=== PATIENT | male | born 1955 | race Caucasian/White ===

== ENCOUNTER 2019-05-14 19:04 | Emergency (ER) | payer MEDICARE, BC ==
[2019-05-14] MEDS ORDERED: Sodium Chloride 0.9% 1000 ML 1,000 ML ONE (19:39)
[2019-05-14 19:45] LABS: BASOPHIL % 1.2 % (0.0-0.4); Basophil (Absolute #) 0.05 (0-0.4); Eosinophil % 9.9 % (0.00-5.0); Eosinophil (Absolute #) 0.42 (0-0.5); Granulocyte Absolute (ANC) 2.24 (1.4-6.9); Granulocytes % 52.5 % (36.0-66.0); Hematocrit 39.4 % (42-50); Lymphocyte (Absolute #) 1.12 (1.0-4.6); Lymphocytes % 26.3 % (24.0-44.0); Mean Cell Volume 95.4 fl (78-100); Mean Corpuscular Hemoglobin 31.5 pg (26-32); Mean Platelet Volume 9.4 fl (6-9.5); Monocyte (Absolute #) 0.43 (0.0-1.3); Monocytes % 10.1 % (0.0-12.0); Platelet Count 218 K/mm3 (150-450); Red Blood Count 4.13 M/mm3 (4.1-5.6); Red Cell Distribution Width 14.9 % (11.5-14.0); White Blood Count 4.3 K/mm3 (4.0-10.5)
[2019-05-14] MEDS ORDERED: Sodium Chloride 0.9% 1000 ML 1,000 ML IV SCH (19:45)
--- NOTE | 2019-05-14 20:08 | ERPHSYRPT ---
- History of Present Illness Time Seen by Provider: 05/14/19 20:05 Source: patient Exam Limitations: no limitations Patient Subjective Stated Complaint: pt is alert and oriented. pt is ambulatory with a steady gait. pt comes in with c/o dizziness, lightheadedness, and low blood pressure. pt states he just feels like he could pass out. pt bp is 97/63. pt skin pale, warm, and clammy. pt cheeks are flushed. pt denies chest pain, sob , nausea, vomiting, diarrhea. pt states that he has been coughing alot. pt is breathing easily on the bed. pt is afebrile. sinus rhythm on the monitor. Triage Nursing Assessment: see above Physician History: 63-year-old white male with history of dementia, hypothyroidism, asthma, sleep apnea, depression, lung disease Patient brought by his family with complaints that the patient has been complaining of being short of breath with a cough for 2 months his apparently has been dizzy for 3 days he does not have any chest pain he has no nausea no vomiting no fevers Patient's thought patient's blood pressure was low at about 99 systolic prior to arrival patient does not have a history of hypertension. Past medical history includes dementia, hypothyroidism, asthma, sleep apnea, depression, lung disease past surgical history includes tonsils, hernia repair, right knee surgery, Timing/Duration: other (short of breath 2 months,, dizzy weak 3 days) Modifying Factors: Improves With: nothing Associated Symptoms: shortness of breath, weakness, other (dizzy), No nausea, No vomiting, No abdominal pain, No heartburn, No diaphoresis, No cough, No chills, No chest pain, No fever, No headaches, No loss of appetite, No malaise, No rash, No syncope, No seizure Allergies/Adverse Reactions: No Known Drug Allergies Allergy (Unverified 05/14/19 19:25) Home Medications: ARIPiprazole [Aripiprazole] 10 mg PO DAILY 05/14/19 [History] Cyanocobalamin (Vitamin B-12) [Vitamin B-12] 1,000 mcg PO DAILY 05/14/19 [ History] Donepezil HCl 10 mg [Aricept 10 MG] 5 mg PO DAILY 05/14/19 [History] Fluoxetine HCl 10 mg [Prozac 10 mg] 10 mg PO DAILY 05/14/19 [History] Levothyroxine Sodium 150 mcg PO DAILY 05/14/19 [History] Multivitamin [Multivitamins] 1 each PO DAILY 05/14/19 [History] Trazodone HCl 100 mg PO DAILY 05/14/19 [History] Hx Influenza Vaccination/Date Given: No Hx Pneumococcal Vaccination/Date Given: No Immunizations Up to Date: Yes - Review of Systems Constitutional: Weakness, No Fever, No Chills Eyes: No Symptoms Ears, Nose, & Throat: No Symptoms Respiratory: Dyspnea, No Cough Cardiac: No Chest Pain, No Edema, No Syncope Abdominal/Gastrointestinal: No Abdominal Pain, No Nausea, No Vomiting, No Diarrhea Genitourinary Symptoms: No Dysuria Musculoskeletal: No Back Pain, No Neck Pain Skin: No Rash Neurological: Dizziness, No Focal Weakness, No Sensory Changes Psychological: No Symptoms Endocrine: No Symptoms All Other Systems: Reviewed and Negative - Past Medical History Pertinent Past Medical History: Yes Neurological History: Dementia ENT History: No Pertinent History Cardiac History: No Pertinent History Respiratory History: Asthma, Sleep Apnea Endocrine Medical History: Hypothyroidism Musculoskeletal History: No Pertinent History GI Medical History: No Pertinent History History: No Pertinent History Psycho-Social History: Depression Male Reproductive Disorders: No Pertinent History Other Medical History: Lyme disease - Past Surgical History Past Surgical History: Yes Neuro Surgical History: No Pertinent History Cardiac: No Pertinent History Respiratory: No Pertinent History Gastrointestinal: Hernia Repair Genitourinary: No Pertinent History Musculoskeletal: Joint Replacement Male Surgical History: No Pertinent History Other Surgical History: right knee replacement, hip. - Social History Smoking Status: Former smoker Drug Use: none - Nursing Vital Signs Nursing Vital Signs: Initial Vital Signs Temperature 97.5 F 05/14/19 19:16 Pulse Rate 53 L 05/14/19 19:16 Respiratory Rate 18 05/14/19 19:16 Blood Pressure 97/63 05/14/19 19:16 O2 Sat by Pulse Oximetry 97 05/14/19 19:16 Pain Scale Pain Intensity 0 - Physical Exam General Appearance: no apparent distress, alert Eye Exam: PERRL/EOMI, eyes nml inspection Ears, Nose, Throat Exam: normal ENT inspection, TMs normal, pharynx normal, moist mucous membranes Neck Exam: normal inspection, non-tender, supple, full range of motion Respiratory Exam: normal breath sounds, lungs clear, No respiratory distress Cardiovascular Exam: regular rate/rhythm, normal heart sounds, normal peripheral pulses, capillary refill <2 sec Gastrointestinal/Abdomen Exam: soft, normal bowel sounds, No tenderness, No mass Back Exam: normal inspection, normal range of motion, No CVA tenderness, No vertebral tenderness Extremity Exam: normal inspection, normal range of motion, pelvis stable Neurologic Exam: alert, oriented x 3, cooperative, 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, normal mood/affect, nml cerebellar function, nml station & gait, sensation nml, No motor deficits Skin Exam: normal color, warm, dry, No rash Lymphatic Exam: No adenopathy SpO2 Interpretation: normal (97%) SpO2: 97 - Course Nursing assessment & vital signs reviewed: Yes EKG Interpreted by Me: RATE (49 bpm), Sinus Eric, NORMAL AXIS, Other (EKG: Sinus bradycardia, 49 beats per minute, normal axis, normal EKG, no acute ST or T wave changes) Ordered Tests: Active Orders 24 hr Category Date Time Status EKG-ER Only STAT Care 05/14/19 19:35 Active IV Insertion STAT Care 05/14/19 19:35 Active CHEST 1 VIEW (PORTABLE) Stat Exams 05/14/19 19:35 Taken AMYLASE Stat Lab 05/14/19 19:30 Completed BLOOD CULTURE Stat Lab 05/14/19 20:00 Received CBC W DIFF Stat Lab 05/14/19 19:30 Completed CMP Stat Lab 05/14/19 19:30 Completed LIPASE Stat Lab 05/14/19 19:30 Completed TROPONIN Q3H Lab 05/14/19 10:35 Completed TROPONIN Q3H Lab 05/14/19 19:30 Completed TROPONIN Q3H Lab 05/15/19 01:45 Ordered TROPONIN Q3H Lab 05/15/19 04:45 Ordered TROPONIN Q3H Lab 05/15/19 07:45 Ordered TSH [TSH, 3RD Generation] Stat Lab 05/14/19 22:30 Completed UA W/RFX UR CULTURE Stat Lab 05/14/19 20:20 Completed Medication Summary Generic Name Dose Route Start Last Admin Trade Name Freq PRN Reason Stop Dose Admin Sodium Chloride 1,000 mls @ 100 mls/hr 05/14/19 19:45 05/14/19 19:42 Sodium Chloride 0.9% 1000 Ml IV 06/13/19 19:44 100 mls/hr .Q10H YOBANY Administration Lab/Rad Data: Laboratory Result Diagrams 05/14/19 19:30 05/14/19 19:30 Laboratory Results 05/14/19 05/14/19 05/14/19 Range/Units 22:30 22:30 20:20 WBC (4.0-10.5) K/mm3 RBC (4.1-5.6) M/mm3 Hgb (12.5-18.0) gm/dl Hct (42-50) % MCV (78-100) fl MCH (26-32) pg MCHC (32-36) g/dl RDW (11.5-14.0) % Plt Count (150-450) K/mm3 MPV (6-9.5) fl Gran % (36.0-66.0) % Eos # (Auto) (0-0.5) Absolute Lymphs (auto) (1.0-4.6) Absolute Monos (auto) (0.0-1.3) Lymphocytes % (24.0-44.0) % Monocytes % (0.0-12.0) % Eosinophils % (0.00-5.0) % Basophils % (0.0-0.4) % Absolute Granulocytes (1.4-6.9) Basophils # (0-0.4) Sodium (137-145) mmol/L Potassium (3.5-5.1) mmol/L Chloride (98-107) mmol/L Carbon Dioxide (22-30) mmol/L Anion Gap (5-15) MEQ/L BUN (9-20) mg/dL Creatinine (0.66-1.25) mg/dL Estimated GFR ML/MIN Glucose (74-106) mg/dL Calcium (8.4-10.2) mg/dL Total Bilirubin (0.2-1.3) mg/dL AST (17-59) U/L ALT (0-50) U/L Alkaline Phosphatase (38-126) U/L Troponin I (0.000-0.034) ng/mL Serum Total Protein (6.3-8.2) g/dL Albumin (3.5-5.0) g/dL Amylase (30-110) U/L Lipase (23-300) U/L Free T4 1.34 (0.76-1.46) ng/dL TSH 3rd Generation 0.356 L (0.47-4.68) mIU/L Urine Color YELLOW (YELLOW) Urine Appearance CLEAR (CLEAR) Urine pH 5.0 (5-6) Ur Specific [place] 1.014 (1.005-1.025) Urine Protein NEGATIVE (Negative) Urine Ketones NEGATIVE (NEGATIVE) Urine Blood NEGATIVE (0-5) Robert/ul Urine Nitrite NEGATIVE (NEGATIVE) Urine Bilirubin NEGATIVE (NEGATIVE) Urine Urobilinogen NEGATIVE (0-1) mg/dL Ur Leukocyte Esterase NEGATIVE (NEGATIVE) Urine WBC (Auto) NONE (0-5) /HPF Urine RBC (Auto) NONE (0-2) /HPF U Epithel Cells (Auto) NONE (FEW) /HPF Urine Bacteria (Auto) NONE (NEGATIVE) /HPF Urine Mucus (Auto) SLIGHT (NEGATIVE) /HPF Urine Culture Reflexed NO (NO) Urine Glucose NEGATIVE (NEGATIVE) mg/dL 05/14/19 05/14/19 05/14/19 Range/Units 19:30 19:30 19:30 WBC 4.3 (4.0-10.5) K/mm3 RBC 4.13 (4.1-5.6) M/mm3 Hgb 13.0 (12.5-18.0) gm/dl Hct 39.4 L (42-50) % MCV 95.4 (78-100) fl MCH 31.5 (26-32) pg MCHC 33.0 (32-36) g/dl RDW 14.9 H (11.5-14.0) % Plt Count 218 (150-450) K/mm3 MPV 9.4 (6-9.5) fl Gran % 52.5 (36.0-66.0) % Eos # (Auto) 0.42 (0-0.5) Absolute Lymphs (auto) 1.12 (1.0-4.6) Absolute Monos (auto) 0.43 (0.0-1.3) Lymphocytes % 26.3 (24.0-44.0) % Monocytes % 10.1 (0.0-12.0) % Eosinophils % 9.9 H (0.00-5.0) % Basophils % 1.2 (0.0-0.4) % Absolute Granulocytes 2.24 (1.4-6.9) Basophils # 0.05 (0-0.4) Sodium 139 (137-145) mmol/L Potassium 4.2 (3.5-5.1) mmol/L Chloride 109 H (98-107) mmol/L Carbon Dioxide 23 (22-30) mmol/L Anion Gap 11.1 (5-15) MEQ/L BUN 18 (9-20) mg/dL Creatinine 1.05 (0.66-1.25) mg/dL Estimated GFR > 60.0 ML/MIN Glucose 101 (74-106) mg/dL Calcium 8.9 (8.4-10.2) mg/dL Total Bilirubin 0.30 (0.2-1.3) mg/dL AST 27 (17-59) U/L ALT 27 (0-50) U/L Alkaline Phosphatase 74 (38-126) U/L Troponin I < 0.012 (0.000-0.034) ng/mL Serum Total Protein 7.2 (6.3-8.2) g/dL Albumin 4.2 (3.5-5.0) g/dL Amylase 127 H (30-110) U/L Lipase 84 (23-300) U/L Free T4 (0.76-1.46) ng/dL TSH 3rd Generation (0.47-4.68) mIU/L Urine Color (YELLOW) Urine Appearance (CLEAR) Urine pH (5-6) Ur Specific [place] (1.005-1.025) Urine Protein (Negative) Urine Ketones (NEGATIVE) Urine Blood (0-5) Robert/ul Urine Nitrite (NEGATIVE) Urine Bilirubin (NEGATIVE) Urine Urobilinogen (0-1) mg/dL Ur Leukocyte Esterase (NEGATIVE) Urine WBC (Auto) (0-5) /HPF Urine RBC (Auto) (0-2) /HPF U Epithel Cells (Auto) (FEW) /HPF Urine Bacteria (Auto) (NEGATIVE) /HPF Urine Mucus (Auto) (NEGATIVE) /HPF Urine Culture Reflexed (NO) Urine Glucose (NEGATIVE) mg/dL 05/14/19 Range/Units 10:35 WBC (4.0-10.5) K/mm3 RBC (4.1-5.6) M/mm3 Hgb (12.5-18.0) gm/dl Hct (42-50) % MCV (78-100) fl MCH (26-32) pg MCHC (32-36) g/dl RDW (11.5-14.0) % Plt Count (150-450) K/mm3 MPV (6-9.5) fl Gran % (36.0-66.0) % Eos # (Auto) (0-0.5) Absolute Lymphs (auto) (1.0-4.6) Absolute Monos (auto) (0.0-1.3) Lymphocytes % (24.0-44.0) % Monocytes % (0.0-12.0) % Eosinophils % (0.00-5.0) % Basophils % (0.0-0.4) % Absolute Granulocytes (1.4-6.9) Basophils # (0-0.4) Sodium (137-145) mmol/L Potassium (3.5-5.1) mmol/L Chloride (98-107) mmol/L Carbon Dioxide (22-30) mmol/L Anion Gap (5-15) MEQ/L BUN (9-20) mg/dL Creatinine (0.66-1.25) mg/dL Estimated GFR ML/MIN Glucose (74-106) mg/dL Calcium (8.4-10.2) mg/dL Total Bilirubin (0.2-1.3) mg/dL AST (17-59) U/L ALT (0-50) U/L Alkaline Phosphatase (38-126) U/L Troponin I < 0.012 (0.000-0.034) ng/mL Serum Total Protein (6.3-8.2) g/dL Albumin (3.5-5.0) g/dL Amylase (30-110) U/L Lipase (23-300) U/L Free T4 (0.76-1.46) ng/dL TSH 3rd Generation (0.47-4.68) mIU/L Urine Color (YELLOW) Urine Appearance (CLEAR) Urine pH (5-6) Ur Specific [place] (1.005-1.025) Urine Protein (Negative) Urine Ketones (NEGATIVE) Urine Blood (0-5) Robert/ul Urine Nitrite (NEGATIVE) Urine Bilirubin (NEGATIVE) Urine Urobilinogen (0-1) mg/dL Ur Leukocyte Esterase (NEGATIVE) Urine WBC (Auto) (0-5) /HPF Urine RBC (Auto) (0-2) /HPF U Epithel Cells (Auto) (FEW) /HPF Urine Bacteria (Auto) (NEGATIVE) /HPF Urine Mucus (Auto) (NEGATIVE) /HPF Urine Culture Reflexed (NO) Urine Glucose (NEGATIVE) mg/dL - Progress Progress: improved Progress Note: 05/15/19 00:32 Patient feeling better after 1 L of normal saline patient has had some bradycardia around 48-50 beats per minute, blood pressures have been stable free T4 is 1.34 chemistry essentially normal, urinalysis is normal troponin normal x2 CBC white blood cell of 4.3 hemoglobin 13.0 hematocrit 39.4 Will plan to discharge patient and have patient followup with Dr. Melton. I have discussed the case briefly with Dr. Melton. - Departure Departure Disposition: Home Clinical Impression: Dizziness Condition: Fair Critical Care Time: No Referrals: ALMAZ GILMAN NP [Primary Care Provider] - Additional Instructions: Return home, rest, plenty of fluids. Continue medications as prescribed by your family . Followup with your family . Return for acute distress or for severe symptoms or for any problems.
[2019-05-14 20:15] LABS: ALBUMIN 4.2 g/dL (3.5-5.0); ALKALINE PHOSPHATASE 74 U/L (38-126); AMYLASE 127 U/L (30-110); ANION GAP 11.1 MEQ/L (5-15); BLOOD UREA NITROGEN 18 mg/dL (9-20); CHLORIDE 109 mmol/L (98-107); Calcium 8.9 mg/dL (8.4-10.2); Carbon Dioxide 23 mmol/L (22-30); Creatinine 1 1.05 mg/dL (0.66-1.25); Glucose 101 mg/dL (74-106); LIPASE 84 U/L (23-300); Potassium 4.2 mmol/L (3.5-5.1); SGOT/AST 27 U/L (17-59); SGPT/ALT 27 U/L (0-50); SODIUM 139 mmol/L (137-145); Total Protein 7.2 g/dL (6.3-8.2)
[2019-05-14 20:34] LABS: Appearance CLEAR (CLEAR); Bilirubin NEGATIVE (NEGATIVE); Blood NEGATIVE Ery/ul (0-5); Glucose NEGATIVE (NEGATIVE); Ketones NEGATIVE (NEGATIVE); Leukocyte Esterase NEGATIVE (NEGATIVE); Mucus SLIGHT /HPF (NEGATIVE); Nitrite NEGATIVE (NEGATIVE); Protein,Urine Dip NEGATIVE (Negative); Specific Gravity 1.014 (1.005-1.025); Urobilinogen NEGATIVE mg/dL (0-1)
[2019-05-15 01:18] VITALS: BP 94/75; PULSE 45; O2SAT 99
--- NOTE | 2019-05-15 09:11 | XRAY ---
Indication: Short of breath. Dizziness. Comparison: June 05, 2007. Portable chest again demonstrates normal heart and lungs. Bony thorax intact with mild degenerative changes and interval distal right clavicle resection. Impression: Nonacute chest with chronic features.
== END 2019-05-15 01:27 | disposition home or self-care (01) ==
LOC: ED 19:04
DX: R42 Dizziness and giddiness (principal); E03.9 Hypothyroidism, unspecified; Z79.899 Other long term (current) drug therapy
CPT/HCPCS: 36000; 36415; 71045; 80053; 81001; 82150; 83690; 84439; 84443; 84484; 85025; 87040; 93005; 96360; 96361; 99284

== ENCOUNTER 2024-08-30 15:13 | Emergency (ER) | payer MEDICARE, OTHER ==
[2024-08-30 15:36] VITALS: TEMP 98.4
--- NOTE | 2024-08-30 15:43 | ERPHSYRPT ---
- History of Present Illness Time Seen by Provider: 08/30/24 15:38 Source: patient, family Exam Limitations: no limitations Patient Subjective Stated Complaint: C/O back pain (right mid to upper back). Denies falls or injury. Indicates pain started about 3 weeks ago and is increasing in severity. No hurts to cough or deep breath. Triage Nursing Assessment: Patient ambulated back to ER. He is alert and oriented; hard of hearing. Labored breathing noted with exertion. Crackles noted to right lower lobe. No skin alterations noted to area of pain. Physician History: 69-year-old male came to the emergency room with right lower chest wall pain on the posterior side associated with worsening shortness of breath. 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 Patient denies any blood in the sputum fever chills nausea or vomiting blood in the urine or stool. Patient has a history of smoking but quit around 1015 years ago. 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 Patient denies any heavy pressure type of chest pain nausea or vomiting or abdom inal pain headache or dizziness. Timing/Duration: week(s) (Three weeks), gradual onset Possible Cause: occasional episodes Modifying Factors: Improves With: activity Associated Symptoms: wheezing, painful breathing, No productive cough Allergies/Adverse Reactions: Influenza Virus Vaccines Allergy (Verified 08/30/24 15:27) Home Medications: Aspirin 81 mg PO DAILY 02/14/23 [History] Cyanocobalamin (Vitamin B-12) [B-12] 1,000 mcg PO DAILY 02/14/23 [History] Donepezil HCl [Aricept] 5 mg PO HS 02/14/23 [History] Fluoxetine HCl 10 mg [Prozac 10 mg] 10 mg PO DAILY 02/14/23 [History] Folic Acid 1 mg [Folate 1 mg] 1 mg PO DAILY 02/14/23 [History] Levothyroxine Sodium 112 Mcg [Synthroid 112 Mcg] 112 mcg PO DAILY 02/14/23 [History] Memantine HCl 10 mg PO BID 02/14/23 [History] Pravastatin Sodium 20 mg PO HS 02/14/23 [History] Hx Tetanus, Diphtheria Vaccination/Date Given: Yes Hx Influenza Vaccination/Date Given: No (allergy) Hx Pneumococcal Vaccination/Date Given: No Immunizations Up to Date: Yes Travel Risk - International Travel Have you traveled outside of the country in past 3 weeks: No - Emerging Infectious Disease Are you exhibiting symptoms associated with any current EIDs: Yes Symptoms: Headaches/Body Aches/, Shortness of Breath - Review of Systems Constitutional: No Fever, No Chills Eyes: No Symptoms Ears, Nose, & Throat: No Symptoms Respiratory: Dyspnea on Exertion (MCNAMARA), Wheezing, No Cough, No Dyspnea Cardiac: No Chest Pain, No Edema, No Syncope Abdominal/Gastrointestinal: No Abdominal Pain, No Nausea, No Vomiting, No Diarrhea Genitourinary Symptoms: No Dysuria Musculoskeletal: No Back Pain, No Neck Pain Skin: No Rash Neurological: No Dizziness, No Focal Weakness, No Sensory Changes Psychological: No Symptoms Endocrine: No Symptoms All Other Systems: Reviewed and Negative - Past Medical History Pertinent Past Medical History: Yes Neurological History: Dementia ENT History: No Pertinent History Cardiac History: High Cholesterol Respiratory History: Asthma, Sleep Apnea Endocrine Medical History: Hypothyroidism Musculoskeletal History: No Pertinent History GI Medical History: No Pertinent History History: No Pertinent History Psycho-Social History: Depression Male Reproductive Disorders: No Pertinent History Other Medical History: Lyme disease, 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 - Social History Smoking Status: Former smoker Drug Use: none - Social Determinants of Health Will the patient participate in the screening: Yes Do you worry about a steady place to live?: No Do you have any problems with any of the following?: No known problems In the past 12 months,have you had to go without utilities?: No Transportation Issues: No Has anyone in your support network made you feel unsafe?: No Have you or anyone in your house had to go without enough: No - Nursing Vital Signs Nursing Vital Signs: Initial Vital Signs Pulse Rate 60 08/30/24 15:30 Respiratory Rate 26 H 08/30/24 15:30 Blood Pressure 113/75 08/30/24 15:30 O2 Sat by Pulse Oximetry 96 08/30/24 15:30 Pain Scale Pain Intensity [] 10 Pain Intensity 8 - Physical Exam General Appearance: no apparent distress, alert Eye Exam: PERRL/EOMI Neck Exam: normal inspection, supple Respiratory Exam: chest tenderness, respiratory distress, diminished breath sounds, accessory muscle use, crackles/rales, rhonchi, wheezing Cardiovascular/Chest Exam: normal heart sounds, regular rate/rhythm Abdominal/Gastrointestinal Exam: soft, No tenderness, No distention, No mass Extremity Exam: non-tender, normal range of motion, normal inspection, no calf tenderness, no pedal edema Neurologic Exam: alert, oriented x 3, cooperative, briquette maker II-XII nml as tested, sensation nml, No motor deficits Skin Exam: normal color, warm, No dry SpO2 Interpretation: normal SpO2: 96 O2 Delivery: Room Air - Course Nursing assessment & vital signs reviewed: Yes - CT Exams Chest CT Interpretation: Tele-radiologist Report Ordered Tests: Active Orders 24 hr Category Date Time Status EKG-ER Only STAT Care 08/30/24 15:37 Active IV Insertion STAT Care 08/30/24 15:37 Active CHEST WITH CONTRAST [CT] Stat Exams 08/30/24 15:37 Completed CBC W DIFF Stat Lab 08/30/24 15:50 Completed CMP Stat Lab 08/30/24 15:50 Completed D-DIMER QUANTITATIVE Stat Lab 08/30/24 15:50 Completed MAGNESIUM Stat Lab 08/30/24 15:50 Completed NT PRO BNPII Stat Lab 08/30/24 15:50 Completed TROPONIN Stat Lab 08/30/24 15:50 Completed Lab/Rad Data: Laboratory Result Diagrams 08/30/24 15:50 08/30/24 15:50 Laboratory Results 08/30/24 08/30/24 08/30/24 Range/Units 15:50 15:50 15:50 WBC (4.23-9.07) x10^3/uL RBC (4.63-6.08) x10^6/uL Hgb (13.7-17.5) g/dL Hct (40.1-51.0) % MCV (79.0-92.2) fL MCH (25.7-32.2) pg MCHC (32.3-36.5) g/dL RDW (11.6-14.4) % Plt Count (163-337) x10^3/uL MPV (9.4-12.4) fL Gran % (34.0-67.9) % Immature Gran % (Auto) (0.001-0.429) % Nucleat RBC Rel Count (0.00-0.2) % Eos # (Auto) (0.04-0.54) x10^3/uL Immature Gran # (Auto) (0.001-0.031) x10^3u/L Absolute Lymphs (auto) (1.32-3.57) x10^3/uL Absolute Monos (auto) (0.30-0.82) x10^3/uL Absolute Nucleated RBC (0.00-0.012) x10^3u/L Lymphocytes % (21.8-53.1) % Monocytes % (5.3-12.2) % Eosinophils % (0.8-7.0) % Basophils % (0.2-1.2) % Absolute Granulocytes (1.78-5.38) x10^3/uL Basophils # (0.01-0.08) x10^3/uL D-Dimer 1.22 H* (0.0-0.50) mg/L Sodium (135-145) mmol/L Potassium (3.5-5.1) mmol/L Chloride (98-107) mmol/L Carbon Dioxide (22-30) mmol/L Anion Gap (5-15) MEQ/L BUN (9-20) mg/dL Creatinine (0.66-1.25) mg/dL Estimated GFR ML/MIN Glucose (74-106) mg/dL Calcium (8.4-10.2) mg/dL Magnesium (1.6-2.3) mg/dL Total Bilirubin (0.2-1.3) mg/dL AST (17-59) U/L ALT (0-50) U/L Alkaline Phosphatase (38-126) U/L Troponin I (0.000-0.033) ng/mL NT-Pro-B Natriuret Pep 305 (<300) pg/mL Serum Total Protein (6.3-8.2) g/dL Albumin (3.5-5.0) g/dL Influenza Type A Ag NEGATIVE (NEGATIVE) Influenza Type B Ag NEGATIVE (NEGATIVE) RSV (PCR) NEGATIVE (NEGATIVE) SARS-CoV-2 (PCR) NEGATIVE (NEGATIVE) 08/30/24 08/30/24 Range/Units 15:50 15:50 WBC 3.9 L (4.23-9.07) x10^3/uL RBC 3.44 L (4.63-6.08) x10^6/uL Hgb 10.9 L (13.7-17.5) g/dL Hct 33.8 L (40.1-51.0) % MCV 98.3 H (79.0-92.2) fL MCH 31.7 (25.7-32.2) pg MCHC 32.2 L (32.3-36.5) g/dL RDW 14.7 H (11.6-14.4) % Plt Count 245 (163-337) x10^3/uL MPV 8.8 L (9.4-12.4) fL Gran % 63.2 (34.0-67.9) % Immature Gran % (Auto) 0.3 (0.001-0.429) % Nucleat RBC Rel Count 0.0 (0.00-0.2) % Eos # (Auto) 0.16 (0.04-0.54) x10^3/uL Immature Gran # (Auto) 0.01 (0.001-0.031) x10^3u/L Absolute Lymphs (auto) 0.72 L (1.32-3.57) x10^3/uL Absolute Monos (auto) 0.49 (0.30-0.82) x10^3/uL Absolute Nucleated RBC 0.00 (0.00-0.012) x10^3u/L Lymphocytes % 18.5 L (21.8-53.1) % Monocytes % 12.6 H (5.3-12.2) % Eosinophils % 4.1 (0.8-7.0) % Basophils % 1.3 H (0.2-1.2) % Absolute Granulocytes 2.46 (1.78-5.38) x10^3/uL Basophils # 0.05 (0.01-0.08) x10^3/uL D-Dimer (0.0-0.50) mg/L Sodium 140 (135-145) mmol/L Potassium 3.9 (3.5-5.1) mmol/L Chloride 107 (98-107) mmol/L Carbon Dioxide 24 (22-30) mmol/L Anion Gap 13.1 (5-15) MEQ/L BUN 15 (9-20) mg/dL Creatinine 1.06 (0.66-1.25) mg/dL Estimated GFR 75.0 ML/MIN Glucose 95 (74-106) mg/dL Calcium 8.5 (8.4-10.2) mg/dL Magnesium 2.3 (1.6-2.3) mg/dL Total Bilirubin 0.40 (0.2-1.3) mg/dL AST 48 (17-59) U/L ALT 27 (0-50) U/L Alkaline Phosphatase 124 (38-126) U/L Troponin I < 0.012 (0.000-0.033) ng/mL NT-Pro-B Natriuret Pep (<300) pg/mL Serum Total Protein 6.6 (6.3-8.2) g/dL Albumin 3.8 (3.5-5.0) g/dL Influenza Type A Ag (NEGATIVE) Influenza Type B Ag (NEGATIVE) RSV (PCR) (NEGATIVE) SARS-CoV-2 (PCR) (NEGATIVE) CLINICAL HISTORY: shortness of breath, COMPARISON: None. TECHNIQUE: Contiguous 3.[address] images of the chest were acquired with the administration of intravenous contrast. Coronal and sagittal reconstructions were obtained. 80cc of isovue was administered intravenously. One of the following dose reduction techniques was utilized for this exam: Automated exposure control, adjustment of the mA and/or kV according to patient size, and use of iterative reconstruction FINDINGS: A left-sided cardiac pacemaker is seen in place. Lungs: Bilateral basal pulmonary predominantly subpleural atelectatic/fibrotic bands. Otherwise, the Lungs are clear with no evidence of consolidation, collapse, or focal lesions. No ground-glass opacities or interstitial changes. No pleural effusion . Minimal bilateral basal pleural thickening/reaction. Mediastinum: No mediastinal mass or abnormal lymphadenopathy. PatientID: [id number] Patient Name: MIKE FORD Exam Date: 08/30/2024 Procedure: CHEST WITH CONTRAST page 1 of 2 Normal appearance of the thymus. Hilar Structures: Normal size and configuration, no enlargement. Heart and Great Vessels: Normal heart size and configuration. No pericardial effusion. Normal caliber and course of the thoracic aorta and other great vessels. No significant atherosclerosis or aneurysm. Normal enhancement of the great vessels post-contrast. Pulmonary Arteries: No evidence of pulmonary embolism. Normal size and course of the pulmonary arteries. Esophagus: Normal course and caliber. No masses or dilatation. Bones: No fractures or lytic/sclerotic lesions. Spondylodegenrative changes with moderate compression deformity of L4 vertebral body. No evidence of rib fractures. Chest Wall: No masses or soft tissue abnormalities. Upper Abdomen: Gallbladder sludge. No other abnormalities were noted in the visualized upper abdominal organs. IMPRESSION: 1. No acute cardiopulmonary abnormality. 2. Bilateral basal pulmonary predominantly subpleural atelectatic /fibrotic bands. 3. Minimal bilateral basal pleural thickening/reaction. 4. Incidental note of gallbladder sludge. 5. Unremarkable rest of the study. - Progress Progress: unchanged Counseled pt/family regarding: lab results, diagnosis, need for follow-up, rad results Medical Desision Making - Independent Historian Additional History obtained from: Spouse - Diagnostic Testing Diagnostic test were ordered, analyzed, and reviewed by me: Yes Radiological Interpretation: Teleradiologist Report - Risk of complications Low Risk: Low risk of morbidity from additional dx testing or treatment - Departure Departure Disposition: Home Clinical Impression: Chest wall pain, chronic, Shortness of breath, Gall bladder disease Condition: Stable Critical Care Time: No Referrals: ALMAZ GILMAN NP [Primary Care Provider] - Follow up/PCP as directed Instructions: Shortness of Breath, Adult ED Additional Instructions: Discharge/Care Plan MIKE FORD was seen on 08/30/24 in the Emergency Room. The patient was counseled regarding Diagnosis,Lab results, Imaging studies, need for follow up and when to return to the Emergency Room. Prescriptions given: Discharge Note I have spoken with the patient and/or caregivers. I have explained the patient's condition, diagnosis and treatment plan based on the information available to me at this time. I have answered the patient's and/or caregiver's questions and addressed any concerns. The patient and/or caregivers have as good understanding of the patient's diagnosis, condition and treatment plan as can be expected at this point. The vital signs have been stable. The patient's condition is stable and appropriate for discharge from the emergency department. The patient will pursue further outpatient evaluation with the primary care physician or other designated or consulting physician as outlined in the discharge instructions. The patient and/or caregivers are agreeable to this plan of care and follow-up instructions have been explained in detail. The patient and/or caregivers have received these instruction. The patient/and or caregivers are aware that any significant change in condition or worsening of symptoms should prompt an immediate return to this or the closest emergency department or call 911. MIKE FORD was seen on 08/30/24 n the Emergency Room. At that time you were treated for an emergent condition, during your visit Laboratory, Radiology and/or other procedures may have been ordered. It is very important that you follow-up with your Primary Care Physician ALMAZ GILMAN within the next 24-48 hours to review your Emergency Room visit and the final results of testing that was ordered. Some test results such as Urine Cultures, Blood Cultures, and other cultures if ordered will not be finalized for 24-48 hours. If you do not have a Primary Care Provider please call the medical records department at [phone] ext [phone] to obtain a copy of your results or you may sign into our patient portal to obtain these results by visiting us @ [email or web address] and completing the following steps: 1. Click on the Patient Portal link 2. Click the Patient Self Enrollment Link to complete the enrollment form and entering your 3. Once the enrollment form is completed you will receive an email with a temporary ID and password at the email address you provided. 4. Next choose a user name and password. Your user name must be at least 4 characters long and your password must be at least 4 characters long. 5. Choose a security question from the list and provide your answer to the question. If you already have signed into the Health Portal you may access your Health Care Information 06/05 by the following steps: 1. Login to our website @ [email or web address] 2. Enter your original user name and password. FAQS The [facility] Health Portal is an online tool that contains your Lab Results, Radiology Reports, Visit History, Discharge Instructions and Health Summary Lab and Radiology Results will not be available for 72 hours on the portal. The Portal is a secure site, passwords are encryted and URLs are re-written so they cannot be copied and pasted. You and authorized family members are the only ones who can access your Portal. Also there is a timeout feature that protects your information if you leave the Portal page open. If you have technical difficulty please use the Contact Us link on the page this will allow you to submit any questions you have regarding the Portal or you may contact the Medical Record Department at [phone] ext [phone].
[2024-08-30 15:47] VITALS: PULSE 60
[2024-08-30 15:57] LABS: Absolute Neutrophil Ct (ANC) 2.46 x10^3/uL (1.78-5.38); BASOPHIL % 1.3 % (0.2-1.2); Basophil (Absolute #) 0.05 x10^3/uL (0.01-0.08); Eosinophil % 4.1 % (0.8-7.0); Eosinophil (Absolute #) 0.16 x10^3/uL (0.04-0.54); Hematocrit 33.8 % (40.1-51.0); Hemoglobin 10.9 g/dL (13.7-17.5); IMMATURE GRAN # 0.01 x10^3u/L (0.001-0.031); IMMATURE GRAN % 0.3 % (0.001-0.429); Lymphocyte (Absolute #) 0.72 x10^3/uL (1.32-3.57); Lymphocytes % 18.5 % (21.8-53.1); Mean Cell Volume 98.3 fL (79.0-92.2); Mean Corpuscular Hemoglobin 31.7 pg (25.7-32.2); Mean Corpuscular Hgb Concent. 32.2 g/dL (32.3-36.5); Mean Platelet Volume 8.8 fL (9.4-12.4); Monocyte (Absolute #) 0.49 x10^3/uL (0.30-0.82); Monocytes % 12.6 % (5.3-12.2); Neutrophil % 63.2 % (34.0-67.9); Platelet Count 245 x10^3/uL (163-337); Red Blood Count 3.44 x10^6/uL (4.63-6.08); Red Cell Distribution Width 14.7 % (11.6-14.4); White Blood Count 3.9 x10^3/uL (4.23-9.07)
[2024-08-30 16:23] LABS: ALBUMIN 3.8 g/dL (3.5-5.0); ALKALINE PHOSPHATASE 124 U/L (38-126); ANION GAP 13.1 MEQ/L (5-15); BLOOD UREA NITROGEN 15 mg/dL (9-20); CHLORIDE 107 mmol/L (98-107); Calcium 8.5 mg/dL (8.4-10.2); Carbon Dioxide 24 mmol/L (22-30); Creatinine 1 1.06 mg/dL (0.66-1.25); Glucose 95 mg/dL (74-106); MAGNESIUM 2.3 mg/dL (1.6-2.3); Potassium 3.9 mmol/L (3.5-5.1); SGOT/AST 48 U/L (17-59); SGPT/ALT 27 U/L (0-50); SODIUM 140 mmol/L (135-145); TROPONIN < 0.012 ng/mL (0.000-0.033); Total Protein 6.6 g/dL (6.3-8.2)
[2024-08-30 16:44] LABS: INFLUENZA A NEGATIVE (NEGATIVE); INFLUENZA B NEGATIVE (NEGATIVE); RESPIRATORY SYNCTIAL VIRUS NEGATIVE (NEGATIVE); SARS-CoV-2 Xpert Express NEGATIVE (NEGATIVE)
[2024-08-30 17:28] VITALS: BP 134/74; RESP 19
--- NOTE | 2024-08-30 17:43 | XRAY ---
CLINICAL HISTORY: shortness of breath, COMPARISON: None. TECHNIQUE: Contiguous 3.[address] images of the chest were acquired with the administration of intravenous contrast. Coronal and sagittal reconstructions were obtained. 80cc of isovue was administered intravenously. One of the following dose reduction techniques was utilized for this exam: Automated exposure control, adjustment of the mA and/or kV according to patient size, and use of iterative reconstruction FINDINGS: A left-sided cardiac pacemaker is seen in place. Lungs: Bilateral basal pulmonary predominantly subpleural atelectatic/fibrotic bands. Otherwise, the Lungs are clear with no evidence of consolidation, collapse, or focal lesions. No ground-glass opacities or interstitial changes. No pleural effusion . Minimal bilateral basal pleural thickening/reaction. Mediastinum: No mediastinal mass or abnormal lymphadenopathy. Normal appearance of the thymus. Hilar Structures: Normal size and configuration, no enlargement. Heart and Great Vessels: Normal heart size and configuration. No pericardial effusion. Normal caliber and course of the thoracic aorta and other great vessels. No significant atherosclerosis or aneurysm. Normal enhancement of the great vessels post-contrast. Pulmonary Arteries: No evidence of pulmonary embolism. Normal size and course of the pulmonary arteries. Esophagus: Normal course and caliber. No masses or dilatation. Bones: No fractures or lytic/sclerotic lesions. Spondylodegenrative changes with moderate compression deformity of L4 vertebral body. No evidence of rib fractures. Chest Wall: No masses or soft tissue abnormalities. Upper Abdomen: Gallbladder sludge. No other abnormalities were noted in the visualized upper abdominal organs. IMPRESSION: 1. No acute cardiopulmonary abnormality. 2. Bilateral basal pulmonary predominantly subpleural atelectatic /fibrotic bands. 3. Minimal bilateral basal pleural thickening/reaction. 4. Incidental note of gallbladder sludge. 5. Unremarkable rest of the study. Electronically Signed by: Den Mulligan MD. (08/30/2024 17:39:07 EST)
[2024-08-30 18:01] VITALS: O2SAT 96
== END 2024-08-30 18:12 | disposition home or self-care (01) ==
LOC: ED 15:13
DX: R07.89 Other chest pain (principal); R06.02 Shortness of breath; Z95.0 Presence of cardiac pacemaker; Z79.899 Other long term (current) drug therapy; K82.9 Disease of gallbladder, unspecified
CPT/HCPCS: 0241U; 36415; 71260; 80053; 83735; 83880; 84484; 85025; 85379; 93005; 99285; 99284

== ENCOUNTER 2025-02-15 11:36 | Day surgery (SDC) | payer MEDICARE, OTHER ==
--- NOTE | 2025-02-15 00:04 | HP ---
HISTORY OF PRESENT ILLNESS: Patient has had a right inguinal bulge for few months, bigger now. Sick at stomach sometimes. Prior left inguinal hernia repair in the past. PAST MEDICAL HISTORY: Coronary artery disease, depression, hyperlipidemia, history of some dementia, thyroid cancer, had radiation treatment, hypothyroidism in the past. HOME MEDICATIONS: Donepezil, ferrous sulfate, folic acid, aspirin, levothyroxine, loperamide, memantine, pravastatin, fluoxetine, Risperdal. ALLERGIES: No known drug allergies. PAST SURGICAL HISTORY: Tonsillectomy, adenoidectomy, patient had defibrillator in the past, cardiac catheterization in the past, had right knee arthroplasty, had left inguinal hernia repair in the past. SOCIAL HISTORY: No smoking or alcohol abuse. FAMILY HISTORY: Alzheimer's. REVIEW OF SYSTEMS: Twelve systems reviewed. Pertinent for as noted above and per assessment. Otherwise negative or noncontributory as above and per preadmission assessment PHYSICAL EXAMINATION: GENERAL: Height 5 feet 11 inches. BMI 26.08. No acute distress. HEENT: Sclerae anicteric. NECK: No JVD. CARDIOVASCULAR: Regular rate and rhythm. RESPIRATORY: Equal excursion. Nonlabored breathing. ABDOMEN: Soft. Moderate large right inguinal hernia. No recurrence on the left. SKIN: Dry. EXTREMITIES: No cyanosis or edema. NEUROLOGIC: Alert and oriented. Moving all extremities symmetrically. PSYCHIATRIC: Appropriate mood and affect. IMPRESSION: Hiatal hernia. Recommend repair. Given the size, open repair to lessen risk of recurrence. Shown the risk sheet and explained procedure in detail including bleeding; infection; hematoma; seroma; risk of hydrocele formation; healing ridge; risk of mesh infection or erosion possibly requiring removal; risk of hernia recurrence; risk of black and blue and bruising; risk of urinary retention; risk of aches, pains, burning, or numbness with risk of sensory nerve irritation, scar formation or injury with up to 10-12% chronic aches and pains possibly interfering with sexual function from a pain standpoint; risk of bowel, bladder, and blood loss; risk of anesthesia, DVT, PE, pneumonia, not limited to. Will proceed with outpatient open repair of right inguinal hernia with mesh. Otherwise, continue medications for heart disease, hyperlipidemia, hypothyroidism, and depression.
[2025-02-15] MEDS: Lactated Ringers 1,000 ML IV SCH (11:52)
[2025-02-15] MEDS: CEFAZOLIN 2 GM/100 ML NaCl 2 GM/100 ML IVPB IV SCH (11:52)
[2025-02-15] MEDS ORDERED: KEFZOL 1 GM ONE (12:55)
[2025-02-15] MEDS ORDERED: Sensorcaine 0.25% 10 ML ONE (12:55)
[2025-02-15] MEDS ORDERED: SUBLIMAZE 100 MCG/2 ML ONE (13:13)
[2025-02-15] MEDS ORDERED: Versed 2 MG/2 ML Injection ONE (13:13)
[2025-02-15] MEDS ORDERED: ROCURONIUM BROMIDE IV ONE ×2 (13:13→13:54)
[2025-02-15] MEDS ORDERED: propofoL IV ONE (13:13)
[2025-02-15] MEDS ORDERED: Marcaine 0.5%/Epinephrine 10 ML ONE (13:17)
[2025-02-15] MEDS ORDERED: BRIDION 200MG/2ML IV ONE (14:29)
[2025-02-15 15:49] VITALS: TEMP 97.1
[2025-02-15 16:02] VITALS: BP 134/82; PULSE 61; RESP 18; O2SAT 98
--- NOTE | 2025-02-17 08:58 | OP ---
SURGERY DATE/TIME: 02/15/2025 [id number] PREOPERATIVE DIAGNOSIS: Right inguinal hernia. POSTOPERATIVE DIAGNOSIS: Right inguinal hernia. PROCEDURE: 1) Open repair of right inguinal hernia with mesh. 2) Excision of cord lipoma. SURGEON: Po Turner MD ANESTHESIA: General. ESTIMATED BLOOD LOSS: Minimal. INDICATIONS: As above. Consent was obtained. Site was confirmed and marked in the preop holding area. DESCRIPTION OF PROCEDURE AND FINDINGS: He was taken to the operating room. General anesthesia was induced. He was prepped and draped in the usual sterile fashion. After official time-out and no disagreement in planned procedure, a transverse incision was made and dissection was carried down. A couple of gastric veins in the subcutaneous were clamped, divided, and ligated with Vicryl ties. Dissection was carried down through the Angel's fascia, through the external oblique, going in the direction of its fibers, towards the external ring. The cord was gently mobilized above the pubic tubercle with [place] drain carefully protecting the visible ilioinguinal and iliohypogastric nerve branches. Cremasteric fibers were . There was a large cord lipoma that was carefully away from the cord and ligated with 3-0 Vicryl tie and passed off. Cremasteric fibers were further and a large indirect hernia sac was carefully isolated. It was opened and had a sliding fat component. This was carefully dissected free and then reduced back down in the abdomen with the hernia sac high ligated at the internal ring with 0 Prolene in a purse string fashion. The hernia sac was passed off. The direct component was imbricated down with a running 0 PDS. Once this was accomplished, attention was turned to the mesh repair. It was felt the keyhole mesh would be the most appropriate size of mesh to use. It was secured to the fascia overlying the pubic tubercle with 0 Prolene running along Delbert's ligament showing portion of inguinal ligament with 0 Prolene. The tails of the mesh tacked together with 0 Prolene. The medial edge was transected to the rectus fascia with 0 Prolene. Aponeurosis and internal obliques were secured to the top edge of the mesh and was secured to the aponeurosis and internal obliques with interrupted 0 Vicryl, avoiding the visible branch of the iliohypogastric nerve. Mesh and the tails were nice and flat on the external oblique laterally. Good hemostasis was noted. Wound was irrigated out and good hemostasis was noted. The external oblique was closed with 0 Vicryl, Angel's closed with 3-0 Vicryl, subcutaneous closed with 3-0 Vicryl, skin closed with 4-0 Vicryl. Steri-Strips were also applied. The patient tolerated the procedure well. Then, 0.25% Marcaine local injected along the wound as well as back towards the anterior iliac spine. The patient tolerated the procedure well. There were no complications. He did not have any family out in the waiting room to discuss the findings.
== END 2025-02-15 16:27 | disposition home or self-care (01) ==
LOC: SDC 11:36
PROVIDERS: ATTEND Surgery
DX: K40.90 Unilateral inguinal hernia, without obstruction or gangrene, not specified as recurrent (principal)
CPT/HCPCS: 49505; 55520; 76937; 93005; C1781; J0690; J2250; J2704; J3010